=== PATIENT | female | born 1995 | race Caucasian/White ===

== ENCOUNTER 2017-10-21 00:43 | Emergency (ER) | payer MEDICAID, SELFPAY ==
[2017-10-21 00:45] VITALS: BP 151/75; PULSE 77; RESP 18; TEMP 36.5; O2SAT 100; BMI 28.4
--- NOTE | 2017-10-21 01:13 | ED.VISSUMM ---
- ER Visit Summary Date of Service: 10/21/17 Chief Complaint: Intense pruritic response to multiple insect bites History of Present Illness: The patient is a 21 F who presents after multiple insect bites with intense itching. She denies any respiratory, cardiac or GI symptoms. She denies swelling of lips, tongue or throat. Physical Examination: Patient has multiple insect bites. There is no evidence of infection i.e. warmth, induration, lymphangitis or lymphadenopathy. HEENT exam is unremarkable. Insert cardiopulmonary exam Test Results: None Emergency Department Course and Treatment: Atarax for itching Treatment Plan: Prescription for Atarax Disposition: Discharged to home with mother Impression: Pruritic rash secondary to multiple insect bites This note was generated with [employer] dictation software. It may contain incorrect words, spelling, and punctuation that were not noted in review of the chart prior to signing ED Disposition - Plan for ED Patient: Disposition: Home or Assisted Living Chief Complaint: Rash Instructions: ED Bite Insect Prescriptions: Hydroxyzine HCl 25 mg PO 4X/DAY #20 tab Referrals: Waldemar Harmon [Primary Care Provider] - 1 Week if not improving Additional Instructions: Your prescription was electronically sent to designated pharmacy, [facility].
--- NOTE | 2017-10-21 01:17 | ED.DCSUM_ITS ---
- ER Visit Summary Date of Service: 10/21/17 Chief Complaint: Intense pruritic response to multiple insect bites History of Present Illness: The patient is a 21 F who presents after multiple insect bites with intense itching. She denies any respiratory, cardiac or GI symptoms. She denies swelling of lips, tongue or throat. Physical Examination: Patient has multiple insect bites. There is no evidence of infection i.e. warmth, induration, lymphangitis or lymphadenopathy. HEENT exam is unremarkable. Insert cardiopulmonary exam Test Results: None Emergency Department Course and Treatment: Atarax for itching Treatment Plan: Prescription for Atarax Disposition: Discharged to home with mother Impression: Pruritic rash secondary to multiple insect bites This note was generated with [employer] dictation software. It may contain incorrect words, spelling, and punctuation that were not noted in review of the chart prior to signing ED Disposition - Plan for ED Patient: Disposition: Home or Assisted Living Chief Complaint: Rash Instructions: ED Bite Insect Prescriptions: Hydroxyzine HCl 25 mg PO 4X/DAY #20 tab Referrals: Waldemar Harmon [Primary Care Provider] - 1 Week if not improving Additional Instructions: Your prescription was electronically sent to designated pharmacy, [facility].
[2017-10-21] MEDS: hydrOXYzine 10 MG Tablet 20 MG PO (01:20)
== END 2017-10-21 01:27 | disposition home or self-care (01) ==
LOC: ED 01:22
PROVIDERS: Emergency Provider Emergency Medicine; Family Provider Family Medicine; PCP Family Medicine
DX: T14.8XXA Other injury of unspecified body region, initial encounter (principal); L29.9 Pruritus, unspecified; W57.XXXA Bitten or stung by nonvenomous insect and other nonvenomous arthropods, initial encounter; Y93.9 Activity, unspecified; Y92.9 Unspecified place or not applicable; E66.9 Obesity, unspecified
CPT/HCPCS: 99283